=== PATIENT | male | born 1985 | race Caucasian/White ===

== ENCOUNTER 2018-11-17 22:34 | Emergency (ER) | payer SELFPAY ==
[~2018-11-17] VITALS: Wt 78.0 kg
[2018-11-18] MEDS ORDERED: LIDOCAINE 1% (MDV) 10 ML INJ INJ STA (02:54)
[2018-11-18] MEDS ORDERED: LIDOCAINE 1% (MDV) 20 ML INJ SC ONE (04:00)
--- NOTE | 2018-11-18 04:30 | ERD ---
ER Documentation Chief Complaint Chief Complaint GLF WHILE RUNNING IN PARK AND TRIPPED AND FELL. NASAL LAC, BLEEDING STOPPED HPI 23-year-old male with no past medical surgical history who presents for treatment of laceration to nose. Patient states he was running in park and tripped and fell on his face and sustaining laceration to the nasal septum. Bleeding has been controlled. Patient denies LOC or any other type of trauma. ROS All systems reviewed and are negative except as per history of present illness. Medications Home Meds Active Scripts Acetaminophen* (Tylophen*) 500 Mg Capsule, 1 CAP PO Q6H PRN for PAIN AND OR ELEVATED TEMP, #20 CAP Prov:JASON THORPE PA-C 11/18/18 Allergies Allergies: Coded Allergies: No Known Allergy (Unverified , 11/18/18) PMhx/Soc Medical and Surgical Hx: pt denies Medical Hx, pt denies Surgical Hx Hx Alcohol Use: Yes (occasional) Hx Substance Use: No Hx Tobacco Use: Yes (quit) Smoking Status: Former smoker FmHx Family History: No diabetes, No coronary disease, No other Physical Exam Vitals Vital Signs Date Temp Pulse Resp B/P (MAP) Pulse Ox O2 O2 Flow FiO2 Time Delivery Rate 11/18/18 89 18 122/78 98 Room Air 05:13 (93) 11/17/18 98.6 110 18 140/81 98 22:40 (100) Physical Exam Const: No acute distress Head: Atraumatic Eyes: Normal Conjunctiva ENT: Normal External Ears, Nose and Mouth. Neck: Full range of motion. No meningismus. Resp: Clear to auscultation bilaterally Cardio: Regular rate and rhythm, no murmurs Abd: Soft, non tender, non distended. Normal bowel sounds Skin: No petechiae or rashes Back: No midline or flank tenderness Ext: No cyanosis, or edema Neur: Awake and alert Psych: Normal Mood and Affect Results 24 hrs Current Medications Medications Dose Sig/Kai Start Time Status Last (Trade) Ordered Route PRN Stop Time Admin Dose Reason Admin Lidocaine 10 ml ONCE STAT 11/18/18 Cancel HCl INJ 02:54 (Lidocaine 11/18/18 02:55 1% (Mdv) 10 ml) Lidocaine 20 ml ONCE ONCE 11/18/18 DC (Xylocaine SC 04:00 1% (Mdv) 20 11/18/18 04:01 ml) Procedures/MDM Laceration Repair by me: Anesthesia: 1% lidocaine locally Location: nasal septum Tendon/Joint/Nerves: No injury Foreign body: None detected after copious irrigation and exploration Technique: Simple Interrupted Sutures Complexity: No subcutaneous sutures/mucosal repair/edge excision Post Closure Length: 1 1/2cm Patient's bleeding was easily controlled in the department and there is no indication of anemia. No evidence of compartment syndrome, neurologic injury, vascular injury, open joint, tendon laceration, or foreign body. Patient is appropriate for outpatient follow up. 48 hour wound check. Scar minimization instructions given. Departure Condition: Stable JASON THORPE PA-C Nov 18, 2018 04:30
[2018-11-18] MEDS ORDERED: ACET500C5 PO (04:47)
[2018-11-18 05:13] VITALS: BP 122/78; PULSE 89; RESP 18
== END 2018-11-18 05:13 | disposition home or self-care (01) ==
LOC: EDBD → FTE 22:34
DX: S01.21XA Laceration without foreign body of nose, initial encounter (principal); W01.0XXA Fall on same level from slipping, tripping and stumbling without subsequent striking against object, initial encounter; Y92.830 Public park as the place of occurrence of the external cause; Z87.891 Personal history of nicotine dependence

== ENCOUNTER 2018-11-20 10:56 | Emergency (ER) | payer SELFPAY ==
[~2018-11-20] VITALS: Ht 180.3 cm; Wt 81.0 kg
[~2018-11-20 10:56] MED LIST: ACET500C5 PO
[2018-11-20 11:00] VITALS: BP 126/83; PULSE 62; RESP 18; Ht 180.3 cm; Wt 81.0 kg
--- NOTE | 2018-11-20 11:31 | ERD ---
ER Documentation Chief Complaint Chief Complaint wound check HPI 33-year-old male presents for a wound check on a nasal laceration sustained 3 days ago. He has no redness, bleeding discharge, additional complaints. ROS All systems reviewed and are negative except as per history of present illness. Medications Home Meds Active Scripts Acetaminophen* (Tylophen*) 500 Mg Capsule, 1 CAP PO Q6H PRN for PAIN AND OR ELEVATED TEMP, #20 CAP Prov:JASON THORPE PA-C 11/18/18 Allergies Allergies: Coded Allergies: No Known Allergy (Unverified , 11/18/18) PMhx/Soc Hx Alcohol Use: Yes (occasional) Hx Substance Use: No Hx Tobacco Use: Yes (quit) FmHx Family History: No diabetes, No coronary disease, No other Physical Exam Vitals Vital Signs Date Temp Pulse Resp B/P (MAP) Pulse Ox O2 O2 Flow FiO2 Time Delivery Rate 11/20/18 98.8 62 18 126/83 97 11:00 (97) Physical Exam Const: No acute distress Head: Atraumatic Eyes: Normal Conjunctiva ENT: Normal External Ears, Nose and Mouth. Healing nasal laceration without erythema, bleeding, discharge. Neck: Full range of motion. No meningismus. Resp: Clear to auscultation bilaterally Cardio: Regular rate and rhythm, no murmurs Abd: Soft, non tender, non distended. Normal bowel sounds Skin: No petechiae or rashes Back: No midline or flank tenderness Ext: No cyanosis, or edema Neur: Awake and alert Psych: Normal Mood and Affect Procedures/MDM Patient presents for wound check of a nasal laceration sustained 3 days ago. There is no signs of infection. Wound appears to be healing satisfactorily. Patient will be discharged home with recommendations for 3 days suture removal. Patient advised to return sooner for fevers, redness, new or worsening symptoms. Departure Diagnosis: Primary Impression: Encounter for wound re-check Condition: Stable Patient Instructions: Wound Check, Lac F/U (No Infection) Additional Instructions: Suture removal in approximately 3 days. Recheck sooner for redness, bleeding, discharge, fevers, new worsening symptoms. CHRIST UGALDE MD Nov 20, 2018 11:31
== END 2018-11-20 12:15 | disposition left against medical advice (07) ==
LOC: FTE 10:56
DX: Z48.01 Encounter for change or removal of surgical wound dressing (principal)
CPT/HCPCS: 99281

== ENCOUNTER 2018-11-23 20:07 | Emergency (ER) | payer SELFPAY ==
[~2018-11-23] VITALS: Ht 180.3 cm; Wt 81.8 kg
[2018-11-23 20:17] VITALS: Ht 180.3 cm; Wt 81.8 kg
[2018-11-23 20:40] VITALS: BP 122/63; PULSE 60; RESP 18
--- NOTE | 2018-11-23 21:56 | ERD ---
ER Documentation Chief Complaint Chief Complaint suture removal to nose. HPI 33-year-old male is here for uncomplicated removal of sutures from his nose that were placed 6 days ago. No complaints. No fever. No bleeding or drainage. ROS All systems reviewed and are negative except as per history of present illness. Medications Home Meds Active Scripts Acetaminophen* (Tylophen*) 500 Mg Capsule, 1 CAP PO Q6H PRN for PAIN AND OR ELEVATED TEMP, #20 CAP Prov:JASON THORPE PA-C 11/18/18 Allergies Allergies: Coded Allergies: No Known Allergy (Unverified , 11/23/18) PMhx/Soc Hx Alcohol Use: Yes (occasional) Hx Substance Use: No Hx Tobacco Use: Yes (quit) Smoking Status: Current every day smoker FmHx Family History: No diabetes Physical Exam Vitals Vital Signs Date Temp Pulse Resp B/P (MAP) Pulse Ox O2 O2 Flow FiO2 Time Delivery Rate 11/23/18 97.8 61 18 126/65 96 20:17 (85) Physical Exam Const: No acute distress Head: Atraumatic Eyes: Normal Conjunctiva ENT: Normal External Ears, Nose and Mouth. Neck: Full range of motion. No meningismus. Resp: Clear to auscultation bilaterally Cardio: Regular rate and rhythm, no murmurs Skin: 6 sutures on underside of nose, no surrounding erythema bleeding or drainage Procedures/MDM Sutures removed without complication. Patient counseled regarding my diagnostic impression and care plan. Prior to discharge all questions answered. Pt agrees with treatment plan and understands strict return precautions. Pt is instructed to follow up with primary care provider within 24-48 hours. Precautionary instructions provided including instructions to return to the ER if not improving or for any worsening or changing symptoms or concerns. Departure Diagnosis: Primary Impression: Encounter for removal of sutures Condition: Stable Patient Instructions: Suture Removal, No Complication Additional Instructions: Call your primary care doctor TOMORROW for an appointment during the next 1-2 days.See the doctor sooner or return here if your condition worsens before your appointment time. DADA MARISCAL PA-C Nov 23, 2018 21:55
== END 2018-11-23 20:40 | disposition home or self-care (01) ==
LOC: FTE 20:07
DX: Z48.02 Encounter for removal of sutures (principal); F17.210 Nicotine dependence, cigarettes, uncomplicated
CPT/HCPCS: 99281